=== PATIENT | male | born 1950 | race Caucasian/White ===

== ENCOUNTER 2018-01-04 07:43 | Outpatient (CLI) | payer MEDICARE, BC ==
[2018-01-04] MEDS ORDERED: Iopamidol 370 76% 100 ML VIAL ONE (08:24)
--- NOTE | 2018-01-04 09:16 | CT ---
CT ABDOMEN AND PELVIS WITH AND WITHOUT IV CONTRAST: Date: 01/04/18 HISTORY: Hematuria. FINDINGS: The lung bases are unremarkable. No free air, free fluid, or lymphadenopathy is seen in the abdomen o r pelvis. The spleen, pancreas, and adrenal glands are normal. Calcified gallstones are present. Numerous cysts are seen in the liver and kidneys. Some of the renal cysts have a high attenuation and are consistent with hemorrhagic cyst. No enhancing mural nodules are seen. There are a couple of dayna culi in the left kidney. No calculi are seen in the ureters or the urinary bladder. No hydroureterone phrosis is identified. There are vascular calcifications without evidence of aneurysmal dilatation of the abdominal aorta. T he prostate is markedly enlarged. There is colonic diverticulosis. A normal appearing appendix is see n. There are degenerative changes in the spine. IMPRESSION: 1. Polycystic disease in the kidneys and liver. 2. Nonobstructing left renal calculi. 3. Prostatic enlargement. 4. Cholelithiasis. 5. Colonic diverticulosis. POS: [facility]
== END 2018-01-04 07:44 | disposition home or self-care (01) ==
LOC: CT 07:43
PROVIDERS: ATTEND Urology
DX: N40.1 Benign prostatic hyperplasia with lower urinary tract symptoms (principal); R35.1 Nocturia; Q61.3 Polycystic kidney, unspecified; Q44.6 Cystic disease of liver; N20.0 Calculus of kidney; K80.20 Calculus of gallbladder without cholecystitis without obstruction; K57.30 Diverticulosis of large intestine without perforation or abscess without bleeding; Z87.448 Personal history of other diseases of urinary system
CPT/HCPCS: 74178

== ENCOUNTER 2018-02-06 04:38 | Emergency (ER) | payer MEDICARE, BC ==
[2018-02-06 05:21] LABS: Anion Gap 15 mmol/L (10-20); BUN (Urea Nitrogen) 26 mg/dL (8.4-25.7); Calc. Creatinine Clearance 0 mL/min (70-130); Calcium 9.9 mg/dL (7.8-10.44); Carbon Dioxide 24 mmol/L (23-31); Chloride 103 mmol/L (98-107); Estimated GFR-MDRD 47; Glucose 131 mg/dL (80-115); Potassium 3.8 mmol/L (3.5-5.1); Sodium 138 mmol/L (136-145)
[2018-02-06 05:26] LABS: Bilirubin Negative (Negative); Blood, Urine Moderate (Negative); Clarity CLEAR (Clear); Glucose, Urine (Dipstick) Negative (Negative); Leukocyte Negative (Negative); Nitrite Negative (Negative); Protein, Urine (Dipstick) Negative (Neg-Trace); Specific Gravity, Urine 1.017 (1.002-1.036); Urobilinogen 0.2 mg/dL (0.2-1.0); pH, Urine 5.5 (5.0-9.0)
[2018-02-06 05:29] LABS: Bacteria/HPF None Seen HPF (None Seen); Hyaline Casts/LPF 0-3 HYALINE CAST LPF (0-3 Hyaline); Squamous Epithelial None Seen HPF (0-3); WBC/HPF None Seen HPF (0-3)
== END 2018-02-06 06:02 | disposition home or self-care (01) ==
LOC: ERS 04:38
DX: R33.9 Retention of urine, unspecified (principal); E78.5 Hyperlipidemia, unspecified; Z79.82 Long term (current) use of aspirin; Z79.899 Other long term (current) drug therapy
CPT/HCPCS: 36415; 51702; 80048; 81003; 81015; 87086

== ENCOUNTER 2018-08-05 13:39 | Outpatient (CLI) | payer MEDICARE, BC ==
--- NOTE | 2018-08-05 15:41 | RAD ---
SUPINE ABDOMEN: HISTORY: Polycystic kidneys. Renal calculi. CORRELATION: CT abdomen from 01/04/2018. That exam revealed at least two calculi in the left renal collecting str uctures. FINDINGS: Scattered stool and gas throughout the colon with scattered small bowel gas. Bowel content obscures the renal outlines. The calcifications seen in the left upper collecting structures on the prior CT are not definitely identified on plain film. IMPRESSION: Nonspecific bowel gas pattern. The renal calcifications are not definitely identified. POS: [facility]
--- NOTE | 2018-08-05 15:42 | ULT ---
BILATERAL RENAL ULTRASOUND: Date: 08/05/18 HISTORY: Polycystic kidneys. FINDINGS: The right kidney measures 18.1 cm in length and the left kidney measures 19.7 cm in length. Numerous cysts are seen bilaterally, the largest on the right measuring about 7.0 cm and the largest on the le ft measuring 6.0 cm. The urinary bladder is grossly unremarkable. There is a cluster of echogenic foc i with twinkle artifact in the left kidney likely due to calculi. No definite hydroureteronephrosis i s seen. IMPRESSION: 1. Findings are consistent with polycystic kidney disease. No definite evidence of high grade obstru ction. 2. Probable nonobstructing left renal calculi. POS: [facility]
== END 2018-08-05 13:40 | disposition home or self-care (01) ==
LOC: BICULT 13:39
PROVIDERS: ATTEND Urology
DX: N18.9 Chronic kidney disease, unspecified (principal); N20.0 Calculus of kidney; N28.1 Cyst of kidney, acquired
CPT/HCPCS: 74018; 76770; 81003; 81015; 87086

== ENCOUNTER 2018-11-20 07:40 | Observation (INO) | payer MEDICARE, BC ==
[2018-11-20] MEDS ORDERED: Aspirin 325 MG TAB ONE (08:00)
[2018-11-20] MEDS ORDERED: Nitroglycerin 0.4 MG TAB 1 EACH ONE (08:00)
[2018-11-20] MEDS ORDERED: Aspirin Chewable 81 MG TAB ONE (08:09)
--- NOTE | 2018-11-20 08:19 | RAD ---
2 VIEW CHEST: Date: 11/20/18 HISTORY: Chest pain. COMPARISON: 03/22/16. FINDINGS: The lungs show no evidence of focal infiltrate or vascular congestion. Heart size upper normal and st able. Postop sternotomy changes noted. IMPRESSION: No acute process. POS: OFF
[2018-11-20 08:37] LABS: #Basophils 0.1 thou/uL (0.0-0.2); #Eosinphils 0.2 thou/uL (0.0-0.7); #Monocytes 0.7 thou/uL (0.11-0.59); #Neutrophils 6.3 thou/uL (1.40-6.50); %Basophils 0.6 % (0.0-1.0); %Eosinophils 2.7 % (0.0-10.0); %Lymphocytes 21.2 % (21.0-51.0); %Monocytes 7.6 % (0.0-10.0); Hemoglobin 14.8 g/dL (14.0-18.0); Mean Corpuscular HGB CONC 32.9 g/dL (32.0-36.0); Mean Corpuscular Hemoglobin 29.1 pg (27.0-31.0); Mean Corpuscular Volume 88.3 fL (78.0-98.0); Mean Platelet Volume 8.2 fL (7.4-10.4); Platelet Count 253 thou/uL (130-400); RBC Distribution Width 12.4 % (11.5-14.5); Red Blood Cell (RBC) Count 5.08 mill/uL (4.70-6.10); White Blood Cell (WBC) Count 9.3 thou/uL (4.8-10.8)
[2018-11-20 08:56] LABS: ALT (SGPT) 24 U/L (8-55); AST (SGOT) 21 U/L (5-34); Albumin 4.1 g/dL (3.4-4.8); Alkaline Phosphatase 93 U/L (40-150); Anion Gap 14 mmol/L (10-20); BUN (Urea Nitrogen) 21 mg/dL (8.4-25.7); Bilirubin, Total 0.8 mg/dL (0.2-1.2); CK (CPK) 84 U/L (30-200); Calc. Creatinine Clearance 0 mL/min (70-130); Calcium 9.7 mg/dL (7.8-10.44); Carbon Dioxide 24 mmol/L (23-31); Chloride 102 mmol/L (98-107); Estimated GFR-MDRD 49; Globulin 3.3 g/dL (2.4-3.5); Glucose 109 mg/dL (80-115); Potassium 3.9 mmol/L (3.5-5.1); Protein, Total 7.4 g/dL (5.8-8.1); Sodium 136 mmol/L (136-145)
[2018-11-20] MEDS ORDERED: Ketorolac Tromethamine 30 MG/ML VIAL ONE (10:28)
[2018-11-20] MEDS ORDERED: Acetaminophen 325 MG TAB PO PRN (13:20)
[2018-11-20] MEDS ORDERED: Ondansetron ODT 4 MG TAB SL PRN (13:20)
[2018-11-20] MEDS ORDERED: Ondansetron PF 4 MG/2 ML Vial IVP PRN (13:20)
[2018-11-20 13:27] VITALS: BMI 32.7
[2018-11-20 14:41] LABS: Troponin I Less than 0.010 ng/mL (< 0.028)
[2018-11-20 17:18] LABS: Troponin I Less than 0.010 ng/mL (< 0.028)
[2018-11-20 20:09] VITALS: BP 141/66; TEMP 97.5
--- NOTE | 2018-11-21 03:17 | HP ---
PRIMARY CARE PHYSICIAN: Salvador Emmanuel MD CHIEF COMPLAINT: Chest pain. HISTORY OF PRESENT ILLNESS: This is a 68-year-old male patient of Dr. Salvador Emmanuel, who has known atherosclerotic cardiovascular disease status post CABG x4 [place] [address] Chance. States he was hand washing his truck yesterday, took him about 2 hours. After that point, went into the house, had a regular evening as he was lying down to sleep. He felt his chest was a little sore, especially on the left side. He did initially think anything of it. Woke up this morning, the chest was still sore, took some Tylenol and did not see anything improve. Morning went on and his chest was not getting better, so he decided to come into the emergency room and get checked out. In the ER, initial sets of labs were all negative. Troponins were negative. His EKG showed no ST-T wave elevations or depressions. No indications of acute ischemia. Plan from the ER doc was to put him upstairs for evaluation. The patient states that he saw Dr. De Leon, the research staff member, just last week for full eval and he was told he was doing great. PAST MEDICAL HISTORY: Positive for atherosclerotic cardiovascular disease, hyperlipidemia, and hypertension. PAST SURGICAL HISTORY: As stated above, CABG x4 in 2013. FAMILY HISTORY: Hypertension in his father. Hypertension, hyperlipidemia, and leukemia in his mother. Parkinson and stroke in his father's father. SOCIAL HISTORY: No toxic habits. He is single, , works as a offset lithographic press setter, has two children, four grandkids. MEDICATIONS: He is on; 1. Aspirin 81 mg a day. 2. Atorvastatin 40 mg a day. 3. Lisinopril/hydrochlorothiazide 20/25 once a day. 4. He is on metoprolol extended release 100 mg daily. 5. He is on VESIcare 5 mg daily. 6. He gets a Praluent injection for his cholesterol at Dr. De Leon's office, 140 mg every two weeks and then he is on some vitamin supplements. ALLERGIES: PENICILLIN. REVIEW OF SYSTEMS: He denies any headache. No trouble chewing or swallowing. No fevers or chills. No changes to his vision or hearing. Denies any trouble breathing. No shortness of breath. No hemoptysis or cough. He does state that his problem that he had before his bypass was no chest pain, but it was significant dyspnea on exertion and he had none of that. No dyspnea on exertion with this episode. Denies any nausea, vomiting, or hematemesis. Denies any changes in bowel or bladder habits. No dysuria or hematuria. No diarrhea, constipation, or bright red blood per rectum. Denies any paresis or paresthesias. Denies any weakness. Denies any trouble with concentration. No coordination problems. Denies any auditory or visual hallucinations. Denies any suicidal or homicidal ideations. PHYSICAL EXAMINATION: VITAL SIGNS: Initial vitals, temp 98.1, pulse 53, respirations 18, sat 95% on room air with a BP 150/69. GENERAL: Essentially unremarkable. He has a birthmark on his right cheek. He appears stated age of 68. HEENT: Essentially unremarkable. Pupils are equal, round, reactive to light and accommodation. Extraocular movements are intact. Does were glasses. Sclerae are anicteric. Mucosa was moist and not pale. NECK: Supple. No JVD. No bruits. No thyromegaly. No lymphadenopathy. LUNGS: Clear to auscultation bilaterally with no rales, rhonchi, or wheezes. HEART: S1 and S2 with no rubs, murmurs, or gallops. CHEST: Has no reproducible tenderness along the costochondral junctions, but there is tenderness around laterally on his pectoralis muscle that is reproducible, that is the area of soreness that he was experiencing. ABDOMEN: Flat, nontender, and nondistended. No palpable masses. No hepatosplenomegaly. GENITOURINARY: Deferred. EXTREMITIES: Good palpable pulses in all 4 extremities. NEUROLOGIC: Grossly intact. Cranial nerves 2 through 12 are equal and symmetrical. There is no weakness or sensory deficits noted. LABORATORY DATA: His white count is 9.3, hemoglobin is 14.8, hematocrit is 44.9, platelets of 253,000. Sodium 136, potassium 3.9, chloride 102, bicarb 24, BUN is 21, creatinine is 1.4. GFR is 49, glucose of 109, calcium is 9.7, AST is 21, ALT is 24. His first set of troponin was undetectable as was the second set. EKG shows no ST-T wave elevations or depressions. 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 ASSESSMENT: Chest pain. Admitted in observation for rule out. Job ID: [id number]
--- NOTE | 2018-11-21 03:18 | DIS ---
DATE OF ADMISSION: 11/20/2018 DATE OF DISCHARGE: 11/20/2018 PRIMARY CARE PHYSICIAN: Dr. Salvador Emmanuel. CONSULTATIONS: None. ADMITTING DIAGNOSIS: Chest pain rule out. DISCHARGE DIAGNOSIS: Noncardiac chest pain. HISTORY OF PRESENT ILLNESS: This is a 68-year-old male, patient of Dr. Salvador Emmanuel's with known history of atherosclerotic coronary vascular disease, status post CABG x4 in 2012. After washing his truck by hand yesterday, he started to experience some pectoralis major soreness in the left upper chest. Overnight, it did not resolve, came to the emergency room for further evaluation, was admitted for observation. All of his troponins are undetectable. He had four of them starting at about 0800 this morning and the last was at 1630. EKGs; had three different EKGs throughout the day, all of them had been unchanged. There are no ST-T wave elevations or depressions. The patient states he has had no pain, actually has all just been soreness. Incidentally, his symptom that he had before his bypass was no pain, but he had significant dyspnea on exertion. He had no dyspnea with this episode. The plan is to discharge to home and he will follow up with Dr. Emmanuel next week. He will watch for any further symptoms associated possibly with heart condition, but I believe this is muscular related to his washing of his truck with actions that he typically does not do with any exercise regularity. Job ID: [id number]
--- NOTE | 2018-11-23 23:43 | EKG ---
Test Reason : CHEST PAIN Blood Pressure : / mmHG Vent. Rate : 054 BPM Atrial Rate : 054 BPM P-R Int : 144 ms QRS Dur : 094 ms QT Int : 484 ms P-R-T Axes : 049 -06 024 degrees QTc Int : 458 ms Sinus bradycardia Minimal voltage criteria for LVH, may be normal variant Borderline ECG Confirmed by MIKALA CODY ([id number]), news assignment editor NEELA KOHLER ([id number]) on 11/23/2018 11:42:45 PM Referred By: Confirmed By:MIKALA CODY
--- NOTE | 2018-11-24 00:46 | EKG ---
Test Reason : Blood Pressure : / mmHG Vent. Rate : 058 BPM Atrial Rate : 058 BPM P-R Int : 146 ms QRS Dur : 088 ms QT Int : 452 ms P-R-T Axes : 057 003 023 degrees QTc Int : 443 ms Sinus bradycardia Confirmed by MIKALA CODY ([id number]), newspaper copy editor NEELA KOHLER ([id number]) on 11/24/2018 12:45:50 AM Referred By: Confirmed By:MIKALA CODY
== END 2018-11-20 20:35 | disposition home or self-care (01) ==
LOC: ERS 07:40 → 2SW 11:58
PROVIDERS: ADMIT Family Medicine; ATTEND Family Medicine
DX: R07.89 Other chest pain (principal); I25.10 Atherosclerotic heart disease of native coronary artery without angina pectoris; E78.5 Hyperlipidemia, unspecified; I10 Essential (primary) hypertension; Z79.82 Long term (current) use of aspirin; Z79.899 Other long term (current) drug therapy; Z88.0 Allergy status to penicillin; Z88.8 Allergy status to other drugs, medicaments and biological substances; Z95.1 Presence of aortocoronary bypass graft
CPT/HCPCS: 71046; 80053; 82550; 84484 ×2; 85025; 93005; 96374; 99285; G0378 ×2; 36415; 93010; J1885

== ENCOUNTER 2019-02-10 14:27 | Outpatient (CLI) | payer MEDICARE, BC ==
--- NOTE | 2019-02-10 15:03 | RAD ---
EXAM: Single view of the abdomen HISTORY: Renal calculi and hyperdense renal cyst COMPARISON: None FINDINGS: Single view of the abdomen shows a nonspecific, nonobstructive bowel gas pattern. No suspi cious calcifications are seen. The bones are unremarkable. IMPRESSION: Unremarkable exam
--- NOTE | 2019-02-10 15:05 | ULT ---
US Renal Bilateral STANDARD: 02/10/2019 12:00 AM CLINICAL HISTORY: Renal calculi and cysts. STUDY: Renal ultrasound COMPARISON: None. FINDINGS: Right kidney: Echogenicity: Normal. Masses/cysts: Numerous cysts measuring up to 7.2 cm in size Hydronephrosis: None. Calcifications: None Length: 18.3 cm Left kidney: Echogenicity: Normal. Masses/cysts: Numerous cysts measuring up to 6.1 cm in size. Hydronephrosis: None. Calcifications: None. Length: 18.9 cm Limited visualization of the urinary bladder is unremarkable. IMPRESSION: Bilateral renal cysts
== END 2019-02-10 14:28 | disposition home or self-care (01) ==
LOC: BICULT 14:27
PROVIDERS: ATTEND Urology
DX: N18.9 Chronic kidney disease, unspecified (principal); N28.1 Cyst of kidney, acquired; N20.0 Calculus of kidney
CPT/HCPCS: 36415; 74018; 76770; 80048; 81001; G0103

== ENCOUNTER 2020-03-18 08:18 | Outpatient (CLI) | payer MEDICARE, BC ==
--- NOTE | 2020-03-18 08:51 | RAD ---
KUB: Date; 03/18/2020 HISTORY: Hyperdense renal cyst. Renal calculi. Polycystic kidney disease. COMPARISON: 02/10/2019. FINDINGS/IMPRESSION: The bowel gas pattern is unremarkable. No suspicious calcifications are identified. There are degener ative changes in the spine. POS: [facility]
--- NOTE | 2020-03-18 09:35 | ULT ---
US Renal Bilateral STANDARD History: Hyperdense renal cyst Comparison: Ultrasound January 2019 Findings: Real-time grayscale and color evaluation of the kidneys and urinary bladder was performed. Right kidney measures 19.05 x 12.16 x 9.62 cm and the left kidney measures 21.75 x 5.86 x 13.08 cm. Multicystic kidneys. No solid mass. Urinary bladder is unremarkable. Impression: Enlarged multicystic kidneys.
== END 2020-03-18 08:19 | disposition home or self-care (01) ==
LOC: BICULT 08:18
PROVIDERS: ATTEND Urology
DX: N20.0 Calculus of kidney (principal); Q61.3 Polycystic kidney, unspecified; K76.89 Other specified diseases of liver; M47.816 Spondylosis without myelopathy or radiculopathy, lumbar region
CPT/HCPCS: 74018; 76770

== ENCOUNTER 2021-03-16 08:07 | Outpatient (CLI) | payer MEDICARE, BC | END 2021-03-16 08:08 | disposition home or self-care (01) | LOC: BICULT 08:07 | PROVIDERS: ATTEND Urology | DX: N18.9 Chronic kidney disease, unspecified (principal); N20.0 Calculus of kidney; N28.1 Cyst of kidney, acquired | CPT/HCPCS: 74018; 76770 ==

== ENCOUNTER 2021-06-07 10:39 | Emergency (ER) | payer MEDICARE, BC ==
[2021-06-07] MEDS ORDERED: traMADol HCl 50 MG TAB ONE (14:01)
== END 2021-06-07 16:50 | disposition home or self-care (01) ==
LOC: ERS 10:39
DX: S62.617A Displaced fracture of proximal phalanx of left little finger, initial encounter for closed fracture (principal); S22.039A Unspecified fracture of third thoracic vertebra, initial encounter for closed fracture; W11.XXXA Fall on and from ladder, initial encounter; E78.5 Hyperlipidemia, unspecified; E78.00 Pure hypercholesterolemia, unspecified; I10 Essential (primary) hypertension
CPT/HCPCS: 26605; 71046; 72128; 72131

== ENCOUNTER 2021-06-10 09:50 | Outpatient (CLI) | payer MEDICARE, BC | END 2021-06-10 09:51 | disposition home or self-care (01) | LOC: TBSIIMAG 09:50 | PROVIDERS: ATTEND Neurological Surgery | DX: S22.009A Unspecified fracture of unspecified thoracic vertebra, initial encounter for closed fracture (principal) | CPT/HCPCS: 72072 ==

== ENCOUNTER 2021-07-04 14:33 | Outpatient (CLI) | payer MEDICARE, BC | END 2021-07-04 14:34 | disposition home or self-care (01) | LOC: BICRAD 14:33 | PROVIDERS: ATTEND Neurological Surgery | DX: S22.008A Other fracture of unspecified thoracic vertebra, initial encounter for closed fracture (principal); M54.6 Pain in thoracic spine | CPT/HCPCS: 72072 ==

== ENCOUNTER 2022-02-01 06:29 | Emergency (ER) | payer MEDICARE, BC ==
[2022-02-01 07:35] LABS: #Basophils 0.1 thou/uL (0.0-0.2); #Eosinphils 0.2 thou/uL (0.0-0.7); #Lymphocytes 1.9 thou/uL (1.20-3.40); #Monocytes 0.8 thou/uL (0.11-0.59); #Neutrophils 5.3 thou/uL (1.40-6.50); %Basophils 0.7 % (0.0-1.0); %Eosinophils 2.7 % (0.0-10.0); %Lymphocytes 23.1 % (21.0-51.0); %Monocytes 9.2 % (0.0-10.0); %Neutrophils 64.3 % (42.0-75.0); Hemoglobin 14.9 g/dL (14.0-18.0); Mean Corpuscular HGB CONC 33.5 g/dL (32.0-36.0); Mean Corpuscular Hemoglobin 31.4 pg (27.0-31.0); Mean Corpuscular Volume 93.7 fL (78.0-98.0); Mean Platelet Volume 8.3 fL (7.4-10.4); Platelet Count 230 thou/uL (130-400); RBC Distribution Width 13.2 % (11.5-14.5); Red Blood Cell (RBC) Count 4.75 mill/uL (4.70-6.10); White Blood Cell (WBC) Count 8.2 thou/uL (4.8-10.8)
[2022-02-01 07:56] LABS: ALT (SGPT) 28 U/L (8-55); AST (SGOT) 22 U/L (5-34); Alkaline Phosphatase 92 U/L (40-110); Anion Gap 12 mmol/L (10-20); BUN (Urea Nitrogen) 22 mg/dL (8.4-25.7); Bilirubin, Total 0.6 mg/dL (0.2-1.2); Calc. Creatinine Clearance 0 mL/min (70-130); Calcium 9.3 mg/dL (7.8-10.44); Carbon Dioxide 25 mmol/L (23-31); Chloride 107 mmol/L (98-107); Estimated GFR 61; Globulin 2.8 g/dL (2.4-3.5); Glucose 109 mg/dL (83-110); Potassium 3.4 mmol/L (3.5-5.1); Protein, Total 6.8 g/dL (5.8-8.1); Sodium 141 mmol/L (136-145)
== END 2022-02-01 08:45 | disposition home or self-care (01) ==
LOC: ERS 06:29
DX: M25.512 Pain in left shoulder (principal); I10 Essential (primary) hypertension; E78.00 Pure hypercholesterolemia, unspecified; M10.9 Gout, unspecified; Z79.82 Long term (current) use of aspirin; Z79.899 Other long term (current) drug therapy
CPT/HCPCS: 36415; 71045; 80053; 84484; 85025; 93005

== ENCOUNTER 2022-03-15 07:27 | Outpatient (CLI) | payer MEDICARE, BC ==
[2022-03-15] MEDS ORDERED: Iopamidol-370 76% 500 ML 1 ML ONE (09:37)
== END 2022-03-15 07:28 | disposition home or self-care (01) ==
LOC: BICCT 07:27
PROVIDERS: ATTEND Urology
DX: N28.1 Cyst of kidney, acquired (principal); N20.0 Calculus of kidney; K76.89 Other specified diseases of liver; N18.9 Chronic kidney disease, unspecified; Q44.6 Cystic disease of liver; K80.20 Calculus of gallbladder without cholecystitis without obstruction; K57.30 Diverticulosis of large intestine without perforation or abscess without bleeding
CPT/HCPCS: 74178; 82565; Q9967

== ENCOUNTER 2023-03-14 12:38 | Outpatient (CLI) | payer MEDICARE, BC | END 2023-03-14 12:39 | disposition home or self-care (01) | LOC: ULT 12:38 | PROVIDERS: ATTEND Urology | DX: N20.0 Calculus of kidney (principal); Q61.3 Polycystic kidney, unspecified; N28.81 Hypertrophy of kidney | CPT/HCPCS: 74018; 76770 ==

== ENCOUNTER → 2024-04-16 | Outpatient (CLI) | payer MEDICARE | LOC: LABBT 10:49 | PROVIDERS: ATTEND Urology | DX: Z01.812 Encounter for preprocedural laboratory examination (principal); Z12.5 Encounter for screening for malignant neoplasm of prostate; N18.9 Chronic kidney disease, unspecified; N40.1 Benign prostatic hyperplasia with lower urinary tract symptoms; Q61.3 Polycystic kidney, unspecified; N20.0 Calculus of kidney; R35.0 Frequency of micturition; K76.89 Other specified diseases of liver; R31.29 Other microscopic hematuria; Z90.79 Acquired absence of other genital organ(s) | CPT/HCPCS: 86850; 86900; 86901; 87086 ==

== ENCOUNTER 2024-04-30 05:54 | Day surgery (SDC) | payer MEDICARE ==
[2024-04-30] MEDS ORDERED: LevoFLOXacin D5W 500 mg (100 mL) BAG ONE (07:10)
[2024-04-30] MEDS ORDERED: PROPOFOL 20 ML ONE (08:40)
[2024-04-30] MEDS ORDERED: fentaNYL PF 100 MCG/2 ML SYRINGE ONE (08:41)
[2024-04-30] MEDS ORDERED: PHENYLEPHRINE-NS 100 MCG/ML 10 ML SYRINGE ONE (08:43)
[2024-04-30] MEDS ORDERED: Lidocaine 2% PF 5 ML VIAL ONE (08:46)
[2024-04-30] MEDS ORDERED: Rocuronium Bromide 10 MG/ML (10ML VIAL) ONE (09:00)
[2024-04-30] MEDS ORDERED: Dexamethasone 4 mg/ml Vial ONE (09:05)
[2024-04-30] MEDS ORDERED: Ondansetron PF 4 MG/2 ML Vial ONE (09:05)
[2024-04-30] MEDS ORDERED: SUGAMMADEX SODIUM 200 MG/2 ML VIAL ONE (09:05)
[2024-04-30] MEDS ORDERED: ePHEDrine Sulfate 50 MG/10 ML VIAL ONE (09:13)
[2024-04-30] MEDS ORDERED: Iopamidol 15 ML ONE (10:18)
[2024-04-30] MEDS ORDERED: Phenazopyridine HCl 100 MG TAB ONE (10:33)
[2024-04-30] MEDS ORDERED: Hyoscyamine SL 0.125 MG TAB ONE (10:33)
[2024-04-30] MEDS ORDERED: fentaNYL 50 mcg/mL 1 mL Vial ONE ×3 (10:46→11:46)
[2024-04-30] MEDS ORDERED: HYDROcodone/Acetaminophen 5/325 mg Tablet ONE ×2 (12:41→14:18)
[2024-04-30] MEDS ORDERED: Ketorolac Tromethamine 30 MG (1 mL) VIAL ONE (14:18)
== END 2024-04-30 15:10 | disposition home or self-care (01) ==
LOC: SDC 05:54
PROVIDERS: ATTEND Urology
PROC: 0TBB8ZZ Excision of Bladder, Via Natural or Artificial Opening Endoscopic (ICD-10-PCS; principal; 2024-04-30)
PROC: 0WHR8YZ Insertion of Other Device into Genitourinary Tract, Via Natural or Artificial Opening Endoscopic (ICD-10-PCS; 2024-04-30)
DX: C67.9 Malignant neoplasm of bladder, unspecified (principal); N40.1 Benign prostatic hyperplasia with lower urinary tract symptoms; R35.0 Frequency of micturition; N20.0 Calculus of kidney; Q61.3 Polycystic kidney, unspecified; I12.9 Hypertensive chronic kidney disease with stage 1 through stage 4 chronic kidney disease, or unspecified chronic kidney disease; K76.89 Other specified diseases of liver; R31.29 Other microscopic hematuria; E78.5 Hyperlipidemia, unspecified; I25.10 Atherosclerotic heart disease of native coronary artery without angina pectoris; Z79.899 Other long term (current) drug therapy; Z98.890 Other specified postprocedural states; Z88.0 Allergy status to penicillin; Z88.8 Allergy status to other drugs, medicaments and biological substances
CPT/HCPCS: 52240; 52332; 74420; 86850; 86900; 86901; A4333; C1769; C2617; J1100; J1885; J1956; J2405; J2704; J3010; Q9967; 36415; 88307

== ENCOUNTER 2025-03-18 10:27 | Outpatient (CLI) | payer MEDICARE ==
[2025-03-18 12:16] LABS: Bacteria/HPF None Seen HPF (None Seen); Glucose, Urine (Dipstick) Normal (Negative); Leukocyte Negative Leu/uL (Negative); Protein, Urine (Dipstick) 10 mg/dL (Neg-Trace); RBC/HPF 0-3 HPF (0-3); Specific Gravity, Urine 1.014 (1.002-1.036); WBC/HPF 0-3 HPF (0-3)
[2025-03-18 12:20] LABS: #Basophils 0.05 10x3/uL (0.0-0.2); #Eosinophils 0.31 10x3/uL (0.0-0.7); #Monocytes 1.08 10x3/uL (0.11-0.59); #Neutrophils 6.52 10x3/uL (1.40-6.50); %Basophils 0.5 % (0.0-1.0); %Eosinophils 2.9 % (0.0-10.0); %Lymphocytes 24.4 % (21.0-51.0); %Monocytes 10.2 % (0.0-10.0); %Neutrophils 61.5 % (42.0-75.0); Hematocrit 47.0 % (42.0-52.0); Hemoglobin 15.3 g/dL (14.0-18.0); Mean Corpuscular Hemoglobin 30.2 pg (27.0-31.0); Mean Corpuscular Volume 92.9 fL (78.0-98.0); Platelet Count 249 10x3/uL (130-400); Red Blood Cell (RBC) Count 5.06 mill/uL (4.70-6.10); White Blood Cell (WBC) Count 10.59 10x3/uL (4.8-10.8)
[2025-03-18 12:31] LABS: Anion Gap 17 mmol/L (10-20); BUN (Urea Nitrogen) 20 mg/dL (8.4-25.7); Calc. Creatinine Clearance 0 mL/min (70-130); Calcium 10.0 mg/dL (7.8-10.44); Carbon Dioxide 26 mmol/L (23-31); Chloride 103 mmol/L (98-107); Glucose 94 mg/dL (83-110); Potassium 4.0 mmol/L (3.5-5.1); Sodium 142 mmol/L (136-145)
[2025-03-18 12:32] LABS: INR-International Normal Ratio 1.1; PTT 33.8 sec (22.9-36.1); Prothrombin Time 13.9 sec (12.0-14.7)
== END 2025-03-18 10:28 | disposition home or self-care (01) ==
LOC: LABBT 10:27
PROVIDERS: ATTEND Urology
DX: Z01.818 Encounter for other preprocedural examination (principal); C67.9 Malignant neoplasm of bladder, unspecified; N40.1 Benign prostatic hyperplasia with lower urinary tract symptoms; N28.1 Cyst of kidney, acquired; N20.0 Calculus of kidney; R35.0 Frequency of micturition; N18.9 Chronic kidney disease, unspecified; Q61.3 Polycystic kidney, unspecified; K76.89 Other specified diseases of liver; Z90.79 Acquired absence of other genital organ(s); R31.29 Other microscopic hematuria
CPT/HCPCS: 80048; 81001; 85025; 85610; 85730; 86850; 86900; 86901; 87086; 93005; 93010

== ENCOUNTER 2025-03-23 13:14 | Outpatient (CLI) | payer MEDICARE ==
[~2025-03-23 13:14] MED LIST: Iopamidol 370 76% 100 ML VIAL ONE
== END 2025-03-23 13:15 | disposition home or self-care (01) ==
LOC: CT 13:14
PROVIDERS: ATTEND Urology
DX: C67.9 Malignant neoplasm of bladder, unspecified (principal); N20.0 Calculus of kidney; Q61.3 Polycystic kidney, unspecified; K76.89 Other specified diseases of liver
CPT/HCPCS: 74178; Q9967

== ENCOUNTER 2025-04-01 06:01 | Day surgery (SDC) | payer MEDICARE ==
[2025-03-18 11:10] VITALS: BMI 32.6
[2025-04-01] MEDS ORDERED: LevoFLOXacin D5W 500 mg (100 mL) BAG ONE (06:11)
[2025-04-01] MEDS ORDERED: Rocuronium Bromide 10 MG/ML (10ML VIAL) ONE (07:02)
[2025-04-01] MEDS ORDERED: fentaNYL PF 100 MCG/2 ML SYRINGE ONE (07:02)
[2025-04-01] MEDS ORDERED: PROPOFOL 200 MG/20 ML VIAL ONE (07:17)
[2025-04-01] MEDS ORDERED: SUGAMMADEX SODIUM 200 MG/2 ML VIAL ONE (07:23)
[2025-04-01] MEDS ORDERED: Ondansetron PF 4 MG/2 ML Vial ONE (07:23)
== END 2025-04-01 11:15 | disposition home or self-care (01) ==
LOC: SDC 06:01
PROVIDERS: ATTEND Urology
PROC: 0T5B8ZZ Destruction of Bladder, Via Natural or Artificial Opening Endoscopic (ICD-10-PCS; principal; 2025-04-01)
PROC: 3E0K705 Introduction of Other Antineoplastic into Genitourinary Tract, Via Natural or Artificial Opening (ICD-10-PCS; 2025-04-01)
DX: C67.0 Malignant neoplasm of trigone of bladder (principal); C67.3 Malignant neoplasm of anterior wall of bladder; N40.1 Benign prostatic hyperplasia with lower urinary tract symptoms; R35.0 Frequency of micturition; I25.10 Atherosclerotic heart disease of native coronary artery without angina pectoris; I12.9 Hypertensive chronic kidney disease with stage 1 through stage 4 chronic kidney disease, or unspecified chronic kidney disease; N18.9 Chronic kidney disease, unspecified; N28.1 Cyst of kidney, acquired; N20.0 Calculus of kidney; K76.89 Other specified diseases of liver; E78.00 Pure hypercholesterolemia, unspecified; Z90.79 Acquired absence of other genital organ(s); Z88.0 Allergy status to penicillin; Z88.8 Allergy status to other drugs, medicaments and biological substances; Z79.82 Long term (current) use of aspirin; Z79.899 Other long term (current) drug therapy
CPT/HCPCS: 51720; 52235; 86850; 86900; 86901; A4333; J1100; J1956; J2405; J2704; J9280; 88305; 88341; 88342